=== PATIENT | female | born 1995 | race African-American/Black ===

== ENCOUNTER 2019-04-16 06:30 | Emergency (ER) | payer MEDICAID ==
[~2019-04-16] VITALS: Ht 162.6 cm; Wt 79.0 kg
[2019-04-16 08:27] LABS: BASOPHILS % 1.2 % (0.0-2.0); EOSINOPHILS % 11.1 % (0.0-5.0); HEMATOCRIT. 34.6 % (36.0-48.0); HEMOGLOBIN. 11.3 g/dL (12.0-16.0); LYMPHOCYTES % 29.1 % (20.0-50.0); MEAN CORPUSCULAR HEMOGLOBIN 24.9 pg (28.0-32.0); MEAN CORPUSCULAR VOLUME 76.3 fL (81.0-99.0); MEAN PLATELET VOLUME 7.9 fl (7.4-10.4); MONOCYTES % 6.9 % (2.0-8.0); NEUTROPHILS % 51.7 % (40.0-76.0); PLATELET 378 x1000/uL (130-400); RED BLOOD CELL COUNT 4.54 mill/uL (4.2-5.4); RED CELL DISTRIBUTION WIDTH 15.5 % (11.6-14.6)
[2019-04-16 08:29] LABS: CHLORIDE 105 mEq/L (98-107)
[2019-04-16 08:53] LABS: B-HCG QUANTITATIVE 1086 mIU/mL (<3)
[2019-04-16 08:55] VITALS: BP 120/72
== END 2019-04-16 12:46 | disposition home or self-care (01) ==
LOC: ER 06:30
DX: O20.0 Threatened abortion (principal); O26.891 Other specified pregnancy related conditions, first trimester; Z3A.01 Less than 8 weeks gestation of pregnancy
CPT/HCPCS: 36415; 76801; 81025; 84702; 86850; 86900; 99284

== ENCOUNTER 2020-01-09 21:04 | Emergency (ER) | payer MEDICAID ==
[~2020-01-09] VITALS: Ht 162.6 cm; Wt 84.0 kg
[2020-01-09 21:55] LABS: BASOPHILS % 0.6 % (0.0-2.0); EOSINOPHILS % 6.7 % (0.0-5.0); HEMATOCRIT. 31.9 % (36.0-48.0); HEMOGLOBIN. 10.5 g/dL (12.0-16.0); LYMPHOCYTES % 22.3 % (20.0-50.0); MEAN CORPUSCULAR VOLUME 72.8 fL (81.0-99.0); MEAN PLATELET VOLUME 7.8 fl (7.4-10.4); MONOCYTES % 8.1 % (2.0-8.0); NEUTROPHILS % 62.3 % (40.0-76.0); PLATELET 347 x1000/uL (130-400); RED BLOOD CELL COUNT 4.37 mill/uL (4.2-5.4); RED CELL DISTRIBUTION WIDTH 16.3 % (11.6-14.6)
[2020-01-09 22:01] LABS: CHLORIDE 107 mEq/L (98-107)
[2020-01-09] MEDS: ACETAMINOPHEN 325MG TABLET PO PRN ×2 (22:21→23:32)
[2020-01-09 22:25] LABS: B-HCG QUANTITATIVE 16752 mIU/mL (<3)
[2020-01-09 22:34] LABS: CLARITY URINE CLEAR (CLEAR); COLOR URINE YELLOW (YELLOW); KETONES URINE NEGATIVE (NEGATIVE); LEUKOCYTE ESTERASE URINE TRACE (NEGATIVE); NITRITE URINE NEGATIVE (NEGATIVE); OCCULT BLOOD URINE NEGATIVE (NEGATIVE); PROTEIN URINE NEGATIVE (NEGATIVE); SPECIFIC GRAVITY URINE 1.027 (1.005-1.030)
[2020-01-09 23:11] VITALS: BP 118/64
[2020-01-09] MEDS ORDERED: POTASSIUM CHLORIDE 20MEQ TABLET SR PO ONE (23:15)
== END 2020-01-09 23:39 | disposition home or self-care (01) ==
LOC: ER 21:04
DX: O23.12 Infections of bladder in pregnancy, second trimester (principal); Z3A.17 17 weeks gestation of pregnancy; E87.6 Hypokalemia
CPT/HCPCS: 36415; 76805; 80053; 81003; 81025; 84702; 85025; 93005; 99285

== ENCOUNTER 2020-08-22 16:26 | Emergency (ER) | payer MEDICAID ==
[~2020-08-22] VITALS: Ht 160 cm; Wt 72.6 kg
[2020-08-22 16:28] VITALS: BP 134/67
[2020-08-22] MEDS ORDERED: ACETAMINOPHEN 325MG TABLET PO ONE (16:45)
[2020-08-22] MEDS ORDERED: DOXYCYCLINE HYCLATE 100MG CAPSULE PO ONE (16:45)
[2020-08-22] MEDS ORDERED: DOXY100C2 MT (16:58)
== END 2020-08-22 17:07 | disposition home or self-care (01) ==
LOC: ER 16:26
DX: L73.9 Follicular disorder, unspecified (principal)
CPT/HCPCS: 81025; 99283